=== PATIENT | female | born 1955 | race Caucasian/White ===

== ENCOUNTER 2018-02-13 13:57 | Emergency (ER) | payer OTHER ==
[~2018-02-13] VITALS: Ht 160 cm; Wt 46.3 kg
--- NOTE | 2018-02-13 14:46 | ED HAND/WRIST INJURY COMPLAINT ---
History of Present Illness General Chief Complaint: Hand or Wrist Injury Stated Complaint: ?DISLOCATED FINGER Source: patient Exam Limitations: no limitations Vital Signs & Intake/Output Vital Signs & Intake/Output Vital Signs Date Time Temp Pulse Resp B/P B/P Pulse O2 O2 Flow FiO2 Mean Ox Delivery Rate 02/13 1401 98.2 90 18 119/75 98 Room Air Allergies Coded Allergies: No Known Allergies (02/13/18) Triage Note: 62 YO FEMALE TO TRIAGE FOR EVAL OF L RING FINGER. STATES SHE WAS THROWING A BAIL OF HAY TO HER HORSES AND IT BENT HER FINGER SIDEWAYS. STATES HAPPENED YESTERDAY. NOTED WITH SWELLING AND BRUISING. Triage Nurses Notes Reviewed? yes Occurred: just prior to arrival Duration: day(s): Timing: recent history Injury Environment: home Severity: moderate, severe Pain/Injury Location: Left: 4th finger. No Modifying Factors: none HPI: 62-year-old female comes into the emergency room for further evaluation of left fourth finger pain. Pain is sharp and swollen. Patient reports that she injured it while throwing some hay obarrels over the fence to feed her horses. Pain is sharp and throbbing. Continuous. Nonradiating. Associated bruising. Past History Travel History Traveled to [place] past 21 day No Medical History Any Pertinent Medical History? 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 No Review of Systems Review of Systems Constitutional: Reports: no symptoms. EENTM: Reports: no symptoms. Respiratory: Reports: no symptoms. Cardiovascular: Reports: no symptoms. GI: Reports: no symptoms. Genitourinary: Reports: no symptoms. Musculoskeletal: Reports: see HPI. Skin: Reports: no symptoms. Neurological/Psychological: Reports: no symptoms. Hematologic/Endocrine: Reports: no symptoms. Immunologic/Allergic: Reports: no symptoms. All Other Systems: Reviewed and Negative Physical Exam Physical Exam General Appearance: well developed/nourished, mild distress Head: atraumatic Eyes: Bilateral: normal appearance. Ears, Nose, Throat: normal ENT inspection, hearing grossly normal Neck: normal inspection Cardiovascular/Respiratory: no respiratory distress Back: normal inspection Hand Left: normal inspection (prox phaynx), ecchymosis, limited range of motion, swelling, tender, 4th finger Hand Right: normal inspection Neurologic/Tendon: normal sensation, responds to pain, no evidence tendon injury , no pulse deficit Skin: intact, normal color, warm/dry Progress Differential Diagnosis: contusion, compartment syndrome, dislocation, fracture, sprain Plan of Care: Orders Procedure Date/time Status XRY-HAND, 3 View LEFT 02/13 1400 Active Diagnostic Imaging: Viewed by Me: Radiology Read. Discussed w/RAD: Radiology Read. Radiology Impression: PATIENT: CHEN AZEVEDO PRESENT AGE: 62 PATIENT ACCOUNT NO: [id number] : 55 LOCATION: [facility] ORDERING PHYSICIAN: Srinivasan BLAND SERVICE DATE: 02/13/18-1399 EXAM TYPE: RAD - XRY-HAND, LEFT EXAMINATION: XR HAND, LEFT CLINICAL INFORMATION: Swelling and pain to the left hand at the fourth finger. COMPARISON: None TECHNIQUE: PA, lateral, and oblique views of the left hand. FINDINGS: There is a mildly comminuted fracture of the ring finger proximal phalangeal shaft near the base. No definite intra-articular involvement. There is apex lateral (radial) angulation at the fracture site with lateral displacement of the distal fragments by mild apex volar angulation is also present on the lateral view. Bones are osteopenic. Distortion of the fifth CMC joint may be due to an old healed fracture. 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 IMPRESSION: Mildly comminuted and angulated fracture of the ring finger proximal phalanx DICTATED BY: Mohan Nieves MD DATE/TIME DICTATED:02/13/181439 SHADE MAKER:FLORECITA DATE/TIME TRANSCRIBED:02/13/181439 CONFIDENTIAL, DO NOT COPY WITHOUT APPROPRIATE AUTHORIZATION. <Electronically signed in Other Vendor System> SIGNED BY: Mohan Nieves MD 02/13/181444 Departure Departure Disposition: HOME OR SELF CARE Condition: Stable Clinical Impression Primary Impression: Finger fracture, left Referrals: Bri HILL,Duran Wells Patient Has No Primary Care Dr (PCP/Family) Additional Instructions: Follow-up with orthopedic doctor provided. Take ibuprofen for pain. Stay in splint. Return if any concerns worsening symptoms. Please go over all results of today's visit with your primary care doctor. Contact your primary care doctor to let them know you were here in the emergency room. There may be nonspecific findings which may not be related to your visit today here in the emergency room but may require further evaluation and chronic monitoring by your primary care doctor. If you had a laceration today the chance of foreign body always remains. You should follow-up with your primary care doctor for recheck in 3-5 days for a wound check. If you had an x-ray done there is a chance that a fracture could have been missed on initial read and you should follow-up with your primary care doctor for repeat x-rays if symptoms persist. If your blood pressure was elevated here in the emergency room please have rechecked by rha primary care doctor within the next 48. If you were prescribed a narcotic here in the emergency room or any type of controlled substances you're not allowed to drive while taking this medication or operate any type of heavy machinery. Narcotics can make you feel lightheaded dizziness nausea and can cause constipation. You may need to sampler pickup a stool softener. Thank you for choosing [facility] emergency room. Please return to the emergency room immediately if you have any other concerns worsening of symptoms. Departure Forms: Customer Survey General Discharge Information Comments 02/13/2018 3:05:48 PM Patient clinically looks well. In no apparent distress. Nontoxic-appearing. Patient put in a finger splint. Follow-up with orthopedic doctor. Procedures Splinting Location: Left fourth finger, Manual Alignment Performed: No Pre-Made Type: finger splint Splint: finger splint Splint Applied By: splint applied by me Pre-Proc Neuro Vasc Exam: normal Post-Proc Neuro Vasc Exam: normal
[2018-02-13 15:10] VITALS: BP 116/78
== END 2018-02-13 15:11 ==
LOC: ERH 13:57
DX: S62.611A Displaced fracture of proximal phalanx of left index finger, initial encounter for closed fracture (principal); X58.XXXA Exposure to other specified factors, initial encounter; Y92.009 Unspecified place in unspecified non-institutional (private) residence as the place of occurrence of the external cause; Y93.89 Activity, other specified
CPT/HCPCS: 73130-LT